=== PATIENT | male | born 1985 | race Caucasian/White ===

== ENCOUNTER → 2018-03-07 | Outpatient (CLI) | payer BC ==
--- NOTE | 2018-03-07 15:21 | KCIC ---
Indications: Pain after a fall. 3 view left shoulder study: No acute fracture or dislocation or osteolytic process is evident. No AC joint separation is evident. 3 view left rib detail series and PA view chest x-ray: No acute appearing left rib cage fracture is evident. Chest x-ray demonstrates no acute lung infiltrate or pleural effusion or pneumothorax. The heart size and mediastinum are unremarkable. Five-view cervical spine series: No acute fracture or displacement or discitis or osteolytic process is evident. No prevertebral soft tissue swelling is evident. No significant neural foraminal narrowing is seen. The facet joints are normally aligned. No significant degenerative disc space narrowing is seen. There is mild degenerative endplate spurring at C6-7. IMPRESSION: No acute fracture. Electronically signed by: Kevin Sprague MD (03/07/2018 3:17 PM) [facility]
== END | disposition home or self-care (01) ==
LOC: KCIC 11:39
PROVIDERS: ATTEND Nurse Practitioner Family
DX: M46.02 Spinal enthesopathy, cervical region (principal); M25.512 Pain in left shoulder; R07.81 Pleurodynia
CPT/HCPCS: 71101; 72050; 73030

== ENCOUNTER → 2019-05-04 | Outpatient (CLI) | payer BC ==
--- NOTE | 2019-05-04 16:24 | KCIC ---
MR of the right shoulder HISTORY: Right shoulder pain since 04/23/2019. TECHNIQUE: Routine multiplanar sequences are obtained. FINDINGS: The acromioclavicular joint is intact. Rotator cuff demonstrate mild tendinosis. No evidence of supraspinatus or infraspinatus tendon rupture or retraction. Minimal fluid signal intensity within the supraspinatus tendon footprint without surface violation. Subscapularis tendinosis with partial tear. Trace subdeltoid bursal effusion. No significant glenohumeral joint effusion. No acute articular cartilage defect. Mild signal within the superior labrum without evidence of a labral tear. Biceps tendon is intact. No acute fracture. No aggressive bone destruction. No acute soft tissue abnormality. IMPRESSION: Rotator cuff tendinosis. Partial subscapularis tendon tear. Electronically signed by: Sachin Cordoba MD (05/04/2019 4:21 PM) [id number]
== END | disposition home or self-care (01) ==
LOC: KCIC MRI 14:09
PROVIDERS: ATTEND Nurse Practitioner Family
DX: S46.811A Strain of other muscles, fascia and tendons at shoulder and upper arm level, right arm, initial encounter (principal); X58.XXXA Exposure to other specified factors, initial encounter; Y93.89 Activity, other specified; Y92.89 Other specified places as the place of occurrence of the external cause; Y99.8 Other external cause status
CPT/HCPCS: 73221